=== PATIENT | female | born 1955 | race Caucasian/White ===

== ENCOUNTER 2022-08-22 10:28 | Emergency (ER) | payer OTHER ==
[~2022-08-22] VITALS: Ht 152.4 cm; Wt 79.4 kg
--- NOTE | 2022-08-22 10:28 | NUR ---
PATIENT BIBA TO BED 10.
[2022-08-22 10:33] VITALS: BP 106/61
[2022-08-22] MEDS ORDERED: MORPHINE SULFATE 4 MG/ML SYR ONE (10:58)
[2022-08-22] MEDS ORDERED: MORPHINE SULFATE 4 MG/ML SYR IVP ONE (11:05)
--- NOTE | 2022-08-22 11:12 | NUR ---
X-Ray at bedside.
--- NOTE | 2022-08-22 11:21 | NUR ---
PT TAKEN TO CT [facility]IA [facility]
--- NOTE | 2022-08-22 11:22 | NUR ---
SPOKE TO CLARISSA (DAUGHTER) GAVE UPDATE ON CONDITION. [phone]
--- NOTE | 2022-08-22 11:31 | NUR ---
PT RETURN FROM CT
[2022-08-22 12:19] LABS: BASOPHILS # (AUTO) 0.1 K/uL (0.00-0.22); BASOPHILS % (AUTO) 0.8 % (0.0-2.0); EOSINOPHILS # (AUTO) 0.2 K/uL (0-0.4); EOSINOPHILS % (AUTO) 1.9 % (0.0-4.0); HEMOGLOBIN 11.1 g/dL (12.0-16.0); LYMPHOCYTES # (AUTO) 2.9 K/uL (2.5-16.5); LYMPHOCYTES % (AUTO) 31.4 % (20.5-51.1); MEAN CORPUSCULAR HEMOGLOBIN 29 pg (27-31); MEAN CORPUSCULAR HGB CONC 34 g/dL (33-37); MEAN CORPUSCULAR VOLUME 85.7 fL (80-94); MONOCYTES # (AUTO) 0.6 K/uL (0.8-1.0); MONOCYTES % (AUTO) 6.9 % (1.7-9.3); NEUTROPHILS # (AUTO) 5.5 K/uL (1.8-7.7); PLATELET COUNT (AUTO) 365 K/uL (140-450); RED BLOOD CELL COUNT(AUTO) 3.85 MIL/uL (4.20-5.40); RED CELL DISTRIBUTION WIDTH 14.7 % (11.6-13.7); WHITE BLOOD COUNT (AUTO) 9.4 K/uL (4.8-10.8)
[2022-08-22 12:33] LABS: ALBUMIN 2.8 g/dL (3.4-5.0); ANION GAP 10.9 (8-16); CARBON DIOXIDE 23.1 mmol/L (21-32); CREATININE 1.8 mg/dL (0.6-1.3); TOTAL BILIRUBIN 0.2 mg/dL (0.0-1.0)
[2022-08-22] MEDS ORDERED: ONDA4TAB12 PO (12:46)
[2022-08-22] MEDS ORDERED: AMOX-1230 PO (12:46)
[2022-08-22] MEDS ORDERED: KETO5SOL OP (12:46)
[2022-08-22] MEDS ORDERED: METF-346 PO (12:46)
[2022-08-22] MEDS ORDERED: BACL10TA4 PO (12:46)
[2022-08-22] MEDS ORDERED: SIMV-33 PO (12:46)
[2022-08-22] MEDS ORDERED: AMLO10TA88 PO (12:46)
[2022-08-22] MEDS ORDERED: QUET25TA46 PO (12:46)
[2022-08-22] MEDS ORDERED: ERGO-30 PO (12:46)
[2022-08-22] MEDS ORDERED: INSU100I7 SUBQ (12:46)
[2022-08-22 12:57] VITALS: BP 169/84
--- NOTE | 2022-08-22 13:04 | NUR ---
SPOKE TO CLARISSA, UPDATED ON PT CONDITION, RECEIVED PT MED LIST
--- NOTE | 2022-08-22 15:17 | NUR ---
Patient discharged with v/s stable. Written and verbal after care instructions given and explained. Patient verbalized understanding. Wheel Chair Assisted with to car. All questions addressed prior to discharge. Advised to follow up with PMD.
== END 2022-08-22 15:17 | disposition home or self-care (01) ==
LOC: MED 10:28
DX: S09.90XA Unspecified injury of head, initial encounter (principal); Z20.822 Contact with and (suspected) exposure to COVID-19; M25.512 Pain in left shoulder; E11.9 Type 2 diabetes mellitus without complications; I10 Essential (primary) hypertension; Z79.84 Long term (current) use of oral hypoglycemic drugs; Z79.899 Other long term (current) drug therapy; W19.XXXA Unspecified fall, initial encounter; Y93.89 Activity, other specified; Y92.89 Other specified places as the place of occurrence of the external cause; Y99.8 Other external cause status
CPT/HCPCS: 36415; 70450; 73030; 80053; 85025; 87426; 87804; 93005; 96374; 99285; J2270